=== PATIENT | male | born 1990 | race Caucasian/White ===

== ENCOUNTER 2018-09-03 11:17 | Emergency (ER) | payer MEDICAID ==
[~2018-09-03] VITALS: Wt 78.9 kg
[2018-09-03 11:19] VITALS: BP 130/78; PULSE 78; RESP 18
[2018-09-03] MEDS ORDERED: ACETAMINOPHEN 500 MG TAB PO STA (11:44)
[2018-09-03] MEDS ORDERED: FAMOTIDINE 20 MG TAB PO ONE (12:00)
[2018-09-03] MEDS ORDERED: ACET500C5 PO (13:02)
[2018-09-03] MEDS ORDERED: FAMO-96 PO (13:02)
[2018-09-03] MEDS ORDERED: AZIT250T PO (13:04)
--- NOTE | 2018-09-03 13:07 | ERD ---
ER Documentation Chief Complaint Chief Complaint BACK PAIN HPI 28-year-old male presents with upper back pain worsening over the last 2 weeks. She is worse with cough and deep breathing. Denies a history of trauma or inciting events. Also had a cough for the last few months according to his friend. He states he is productive mucus. Denies fevers, chest pain, vomiting, nominal pain although he has sensation of acid and bloating after eating. Denies any focal abdominal pain. Denies any urinary complaints. Denies any night sweats, hemoptysis, additional symptoms. ROS All systems reviewed and are negative except as per history of present illness. Medications Home Meds Active Scripts Azithromycin* (Zithromax*) 250 Mg Tablet, 250 MG PO .ZPACK DIRECTED, #6 TAB TAKE 500 MG (2 TABS) THE FIRST DAY THEN 250 MG (1 TAB) DAYS 2-5 Prov:MATA FRANCIS MD 09/03/18 Famotidine* (Pepcid*) 20 Mg Tablet, 20 MG PO q day for 30 Days, TAB Prov:MATA FRANCIS MD 09/03/18 Acetaminophen* (Tylophen*) 500 Mg Capsule, 1 CAP PO Q6H PRN for PAIN AND OR ELEVATED TEMP, #20 CAP Prov:MATA FRANCIS MD 09/03/18 Allergies Allergies: Coded Allergies: No Known Allergy (Unverified , 09/03/18) PMhx/Soc Medical and Surgical Hx: pt denies Medical Hx, pt denies Surgical Hx Hx Alcohol Use: No Hx Substance Use: No Hx Tobacco Use: No Smoking Status: Never smoker FmHx Family History: No diabetes, No coronary disease, No other Physical Exam Vitals Vital Signs Date Temp Pulse Resp B/P (MAP) Pulse Ox O2 O2 Flow FiO2 Time Delivery Rate 09/03/18 97.8 78 18 130/78 99 11:19 (95) Physical Exam Const: No acute distress Head: Atraumatic Eyes: Normal Conjunctiva ENT: Normal External Ears, Nose and Mouth. Neck: Full range of motion. No meningismus. Resp: Clear to auscultation bilaterally Cardio: Regular rate and rhythm, no murmurs Abd: Soft, non tender, non distended. Normal bowel sounds Skin: No petechiae or rashes Back: No midline or flank tenderness. Mild tenderness in the upper thoracic area without skin changes, bony deformities, masses. Ext: No cyanosis, or edema Neur: Awake and alert Psych: Normal Mood and Affect Results 24 hrs Laboratory Tests Test 09/03/18 11:52 Bedside Glucose 187 mg/dL Current Medications Medications Dose Sig/Viviane Start Time Status Last (Trade) Ordered Route PRN Stop Time Admin Dose Reason Admin 500 mg ONCE STAT 09/03/18 DC 09/03/18 Acetaminophen PO 11:44 09/03/18 11:50 (Tylenol 11:46 Tab) Famotidine 20 mg ONCE ONCE 09/03/18 DC 09/03/18 (Pepcid) PO 12:00 09/03/18 11:50 12:01 Procedures/MDM Chest X-ray 1V Interpreted by me: Soft Tissue: No acute abnormalities Bones: No acute abnormalities Mediastinum/Cardiac Silhouette/Lungs: No acute abnormalities. Impression- normal 1 view chest x-ray Resents with cough and upper back pain is worsening over the last week. Has had a chronic productive cough for the last few months. He has no signs of hypoxemia, pneumonia, and abdomen is benign. We will treat empirically given the duration of symptoms with Zithromax, Pepcid, Tylenol, primary care follow-up and return precautions. The patient was stable with no new complaints during the ER course. Clinically, there is no current evidence to suggest meningitis, sepsis, acute abdomen, pneumonia, stroke, acute coronary syndrome, pulmonary embolism, aortic dissection or any other emergent condition appearing to require further evaluation or hospitalization. Patient counseled regarding my diagnostic impression and care plan. Prior to discharge all questions answered. Pt agrees with treatment plan and understands strict return precautions. Pt is instructed to follow up with primary care provider within 24-48 hours. Precautionary instructions provided including instructions to return to the ER if not improving or for any worsening or changing symptoms or concerns. Departure Diagnosis: Primary Impression: URI, acute Additional Impression: Back pain Back pain location: thoracic back pain Chronicity: acute Back pain laterality: bilateral Qualified Codes: M54.6 - Pain in thoracic spine Condition: Stable Patient Instructions: Bronchitis, Antiobiotic Treatment (Adult), Thoracic Strain [facility] Usted se bang hecho un examen mdico de control que le indica que no est en jaqcui condicin que requiera tratamiento urgente en el Departamento de Emergencia. Un estudio ms profundo y el tratamiento de avendaño condicin pueden esperar sin ningn riesgo hasta que usted sea atendida/o en el consultorio de avendaño mdico o jacqui clnica. Es responsabilidad suya arreglar jacqui екатерина para el seguimiento del georgi. MANEJO DE CONDICIONES NO URGENTES EN EL FUTURO 1) Si usted tiene un mdico de atencin primaria: Usted debera llamar a avendaño mdico de atencin primaria antes de venir al departamento de emergencia. Despus de las horas de consultorio, avendaño doctor o avendaño asociado/a est disponible por telfono. El mdico o enfermero de brie en el servicio telefnico puede asesorarle por jessica medio para atender el problema, o georgi contrario se puede programar jacqui екатерина. 2) Si usted no tiene un mdico de atencin primaria: Llame al mdico o clnica de referencia que aparece abajo destiny las horas de consultorio para hacer jacqui екатерина para que le vean. CLINICAS: [facility] [phone] [facility] [phone] [facility] [phone] [facility] [id number] [facility] [address] [address] [address] [facility] [facility] [phone] [id number] [facility] [phone] [address] Additional Instructions: X-ray read as normal. Recheck for new or worsening symptoms with primary doctor. MATA FRANCIS MD Sep 03, 2018 13:07
== END 2018-09-03 13:23 | disposition home or self-care (01) ==
LOC: FTE 11:17
DX: J06.9 Acute upper respiratory infection, unspecified (principal)
CPT/HCPCS: 71045; 82962; Z7502; Z7610